=== PATIENT | female | born 1955 | race Caucasian/White ===

== ENCOUNTER 2024-04-27 10:19 | Day surgery (SDC) | payer OTHER, SELFPAY ==
[2024-04-18 06:06] VITALS: BMI 27.4
[2024-04-18 06:37] LABS: % Basophils 1.1 % (0-2); % Immature Granulocytes 0.5 % (0-0.5); % Lymphocytes 32.3 % (20.5-51.1); % Neutrophils 53.1 % (42.2-75.2); Absolute Basophils 0.1 10^3/uL (0-0.2); Absolute Eosinophils 0.1 10^3/uL (0-0.7); Absolute Lymphocytes 1.4 10^3/uL (1.2-3.4); Absolute Monocytes 0.4 10^3/uL (0.1-0.6); Absolute Neutrophils 2.3 10^3/uL (1.4-6.5); Hematocrit 39.8 % (37.0-47.0); Hemoglobin 13.5 g/dL (12.0-16.0); Mean Corp Hgb Conc. 33.9 g/dL (33.0-37.0); Mean Corpuscular Hgb 32.2 pg (27.0-31.0); Mean Platelet Volume 9.9 fL (7.4-10.4); Nucleated Red Blood Cells % 0 %; Platelet Count 240 10^3/uL (130-400); Red Blood Cell Count 4.19 10^6/uL (4.20-5.40); Red Cell Dist. Width 12.9 % (11.5-14.5); White Blood Cell Count 4.4 10^3/uL (4.8-10.8)
[2024-04-27] VITALS (13 sets, daily range): BP systolic 160–204; BP diastolic 65–120; BMI 27.6
--- NOTE | 2024-04-27 13:12 | ITS.CL.ANGIO ---
[employer] - Angioplasty
Angioplasty
Procedure Report:
CARDIAC CATHETERIZATION REPORT
Date of Procedure: 04/27/2024
Referring: Oj Zurita M.D.
INDICATION: Accelerating angina, persistent on 2 antianginal medications.
PROCEDURE:
1. Left heart catheterization
2. Coronary angiography.
3. IVUS guided PCI of the proximal/mid LAD.
ACCESS:
6 Cuban right radial artery.
CATHETERS:
1. 5 Cuban JR4.
2. 5 Cuban JL 3.5.
3. 6 Cuban EBU 3.5 guiding catheter.
HEMODYNAMIC DATA
Weight (kg): 70.3
AO (s/d/x, mmHg): 177/80/121
LV (s/x mmHg): 178/18
LEFT VENTRICULOGRAPHY: Not performed.
CORONARY ANGIOGRAPHY
Dominance: Right.
Left Main: Normal size, bifurcating vessel. There is no coronary artery disease.
LAD: Large size vessel giving large to 2 diagonals. This first diagonal is a substantial vessel supplying much of the anterolateral wall. The second diagonal is a relatively small vessel. There is an 80% lesion in the proximal LAD. The plaque
involving the 80% lesion extends into the mid LAD, spanning the origin of the first diagonal and nearly back to the ostium of the LAD.
Ramus: Congenitally absent.
Circumflex: Normal size, nondominant vessel giving rise to 2 obtuse marginals. The first obtuse marginal is a large vessel which gives off several daughter branches. There are minor luminal irregularities. The second obtuse marginal is a 1.5 mm
vessel supplying the base of the inferior lateral wall.
RCA: Normal size, dominant vessel. There are minor luminal irregularities.
INTERVENTION(S)
1. Successful IVUS guided PCI of the 80% proximal LAD lesion extending into the mid LAD (Xience Skypoint 3.0 x 38 DAVID, postdilated with a 3.5 NC balloon) with reduction in stenosis to 0%, maintaining AXEL-3 flow.
Narrative:
The decision was made to proceed with percutaneous coronary intervention. The diagnostic catheter was removed over a wire and a 6Fr EBU 3.5 guiding catheter was advanced to the aortic root and seated in the left main coronary artery. Additional
heparin was given and a Power Turn Flex wire was advanced into the distal LAD. A BMW wire was advanced into the diagonal for protection. The 80% proximal LAD lesion was predilated with a 2.0 x 12 semi-compliant balloon to 12 dru.
The decision was made to perform intracoronary imaging. An IVUS catheter was advanced through the guiding catheter and into the ostium of the artery. Ring down was performed once the imaging crystal was no longer inside of the guiding catheter. The
IVUS catheter was advanced into the mid LAD, beyond the lesion in question. Intravascular ultrasound was performed in a retrograde fashion using a slow pullback. Intracoronary imaging demonstrated significant atherosclerotic burden, more significant
than angiographically apparent throughout the mid LAD and extending back into the proximal LAD, nearly to the ostium of the LAD.
The IVUS catheter was removed and a Xience Skypoint 3.0 x 38 drug-eluting stent was advanced. The stent was deployed at 12 atmospheres. The stent balloon was removed. A 3.0 x 20 noncompliant balloon was advanced into the stent and the stent was
postdilated to 18 atmospheres. In spite of this aggressive post dilation, a small residual stenosis remained at the distal aspect of the stent and an area of particularly dense calcification.
The 3.0 x 20 noncompliant balloon was removed and a 3.5 x 15 noncompliant balloon was advanced. The proximal margin of the stent was postdilated to 15 dru. The 3.5 x 15 noncompliant balloon was removed and a 3.25 x 12 noncompliant balloon was
advanced. The balloon was advanced into the underexpanded section of the stent in the distal aspect. The balloon was dilated aggressively. At 18 dru, the calcified lesion yielded and the balloon was able to fully expand. The balloon was deflated
and then the mid stent was postdilated to 15 dru. The noncompliant balloon was withdrawn.
IVUS was repeated showing good stent apposition throughout the entire vessel with some residual underexpansion in the calcified margin. The IVUS catheter was removed and the 3.5 x 15 noncompliant balloon was readvanced to the distal aspect of the
stent. The distal stent was postdilated to 15 dru. The mid stent was also dilated to 15 dru. The noncompliant balloon was withdrawn. The power turn flex wire was pulled back into the stented segment and directed into the first diagonal. The BMW
wire was withdrawn from behind the stent then redirected into the LAD, demonstrating that both vessels were percutaneously accessible.
Angiography was performed in orthogonal views, confirming good stent expansion and an excellent angiographic result. The coronary wire was withdrawn and the guide was disengaged from the artery. The catheter was removed over a standard J-wire.
Closure Device: Vascular band.
Radiation (mGy): 512.76
DAP (cm2.Gy): 28.4791
Fluoroscopy time (minutes): 12.7
Sedation time (minutes): 63
CONCLUSIONS
1. Right dominant circulation with luminal irregularities in the circumflex and RCA and dense, calcified plaque in the proximal/mid LAD, spanning the origin of the first diagonal and culminating in an 80% lesion in the proximal LAD, status post
successful IVUS guided PCI (Xience Skypoint 3.0 x 38 DAVID, postdilated with a 3.5 NC balloon) with reduction in stenosis to 0%, maintaining AXEL-3 flow.
2. Mildly elevated filling pressures (LVEDP = 18 mmHg at 70.3 kg).
RECOMMENDATIONS:
1. Expectant management after cardiac catheterization via right radial approach.
2. Limited weight bearing on the right wrist for one week.
3. Dual antiplatelet therapy with aspirin and clopidogrel for at least 12 months, followed by aspirin indefinitely.
4. Guideline directed medical therapy as hemodynamics tolerate.
5. Aggressive secondary prevention with high-dose, high potency statin.
6. Aggressive lifestyle modification.
7. Referral to cardiac rehab.
Copy to: Oj Zurita M.D., Samantha Bruno PA-C
Gigi Tucker DO, FACC, FACP
[2024-04-27] MEDS: ALTACE 10 MG PO (13:19)
[2024-04-27] MEDS: NSS 1000 IV (13:20)
[2024-04-27 13:32] LABS: ACT-LR - POC > 397 Seconds (116-155)
--- NOTE | 2024-04-27 16:14 | W.PN.UPDATE ---
Update Note
Progress Note Update
69 yo WF s/p PCI LAD x1 DAVID (same day). She denies cp, sob, oralia diet, voiding, amb w/o dizziness, EKG SR no ST elevation, R rad site c/d/i. She will be on DAPT ASA/Plavix. We will increase her atorvastatin to 80mg daily. Nitro sl will be provided.
Cardiac rehab c/s. Activity restrictions reviewed. She will continue to monitor her bp at home as her ramipril was increase to 10 bid and toprol started. She will bring a log to her f/u apt as she may need titration or addition of medication. She is
for d/c home after 6pm.
CONCLUSIONS
1. Right dominant circulation with luminal irregularities in the circumflex and RCA and dense, calcified plaque in the proximal/mid LAD, spanning the origin of the first diagonal and culminating in an 80% lesion in the proximal LAD, status post
successful IVUS guided PCI (Xience Skypoint 3.0 x 38 DAVID, postdilated with a 3.5 NC balloon) with reduction in stenosis to 0%, maintaining AXEL-3 flow.
2. Mildly elevated filling pressures (LVEDP = 18 mmHg at 70.3 kg).
RECOMMENDATIONS:
1. Expectant management after cardiac catheterization via right radial approach.
2. Limited weight bearing on the right wrist for one week.
3. Dual antiplatelet therapy with aspirin and clopidogrel for at least 12 months, followed by aspirin indefinitely.
4. Guideline directed medical therapy as hemodynamics tolerate.
5. Aggressive secondary prevention with high-dose, high potency statin.
6. Aggressive lifestyle modification.
7. Referral to cardiac rehab.
Copy to: Oj Zurita M.D., Samantha Bruno PA-C
== END 2024-04-27 17:32 | disposition home or self-care (01) ==
LOC: CATH 10:19
PROVIDERS: ATTENDING PHYSICIAN Internal Medicine Cardiovascular Disease; FAMILY PHYSICIAN Physician Assistant Medical; OTHER PHYSICIAN Internal Medicine
DX: I25.110 Atherosclerotic heart disease of native coronary artery with unstable angina pectoris (principal); I44.7 Left bundle-branch block, unspecified; I10 Essential (primary) hypertension; E78.2 Mixed hyperlipidemia; E10.9 Type 1 diabetes mellitus without complications; Z96.41 Presence of insulin pump (external) (internal); Z82.49 Family history of ischemic heart disease and other diseases of the circulatory system; Z79.82 Long term (current) use of aspirin; Z79.02 Long term (current) use of antithrombotics/antiplatelets
CPT/HCPCS: 92978; 36415; 85025; 85347; 93005; 93458; C1725; C1753; C1769; C1874; C1894; C9600; Q9967

== ENCOUNTER 2024-05-25 13:00 | Outpatient (RCR) | payer OTHER, SELFPAY | END 2024-05-25 23:59 | disposition home or self-care (01) | LOC: CRHB 13:00 | PROVIDERS: ATTENDING PHYSICIAN Internal Medicine | DX: I25.10 Atherosclerotic heart disease of native coronary artery without angina pectoris (principal); Z95.5 Presence of coronary angioplasty implant and graft | CPT/HCPCS: G0422 ==

== ENCOUNTER 2024-05-29 18:06 | Outpatient (RCR) | payer OTHER, SELFPAY ==
[2024-05-25 14:35] LABS: Glucose - Point of Care 121 mg/dl (70-99)
[2024-05-25 15:33] LABS: Glucose - Point of Care 195 mg/dl (70-99)
[2024-06-07 09:44] LABS: HDL Cholesterol 55 mg/dl; LDL Cholesterol, Calculated 38 mg/dl; Total Cholesterol 104 mg/dl (50-199); Triglyceride 56 mg/dl (10-149); Very Low Density Lipoprotein 11 mg/dl (0-30)
== END 2024-05-29 18:12 | disposition home or self-care (01) ==
LOC: CRHB 18:06
PROVIDERS: ATTENDING PHYSICIAN Internal Medicine
DX: I25.10 Atherosclerotic heart disease of native coronary artery without angina pectoris (principal); Z95.5 Presence of coronary angioplasty implant and graft
CPT/HCPCS: 36415; 80061; 82962

== ENCOUNTER 2024-06-27 09:02 | Outpatient (RCR) | payer OTHER, SELFPAY ==
[2024-05-30 08:37] LABS: Glucose - Point of Care 204 mg/dl (70-99)
[2024-05-30 09:32] LABS: Glucose - Point of Care 112 mg/dl (70-99)
[2024-06-06 08:35] LABS: Glucose - Point of Care 137 mg/dl (70-99)
[2024-06-06 09:29] LABS: Glucose - Point of Care 113 mg/dl (70-99)
[2024-06-07 09:26] LABS: Glucose - Point of Care 220 mg/dl (70-99)
[2024-06-08 08:35] LABS: Glucose - Point of Care 258 mg/dl (70-99)
[2024-06-08 09:34] LABS: Glucose - Point of Care 111 mg/dl (70-99)
[2024-06-13 08:31] LABS: Glucose - Point of Care 210 mg/dl (70-99)
[2024-06-13 09:31] LABS: Glucose - Point of Care 97 mg/dl (70-99)
[2024-06-27 08:38] LABS: Glucose - Point of Care 225 mg/dl (70-99)
[2024-06-27 09:36] LABS: Glucose - Point of Care 140 mg/dl (70-99)
== END 2024-06-27 23:59 | disposition home or self-care (01) ==
LOC: CRHB 09:02
PROVIDERS: ATTENDING PHYSICIAN Internal Medicine
DX: I25.10 Atherosclerotic heart disease of native coronary artery without angina pectoris (principal); Z95.5 Presence of coronary angioplasty implant and graft
CPT/HCPCS: 82962; G0422; G0423

== ENCOUNTER → 2024-07-12 08:08 | Outpatient (REF) | payer OTHER, SELFPAY | LOC: HWRCS 08:08 | PROVIDERS: ATTENDING PHYSICIAN Internal Medicine; FAMILY PHYSICIAN Physician Assistant Medical | DX: I25.10 Atherosclerotic heart disease of native coronary artery without angina pectoris (principal) | CPT/HCPCS: 93306 ==

== ENCOUNTER 2024-07-27 08:39 | Outpatient (RCR) | payer OTHER, SELFPAY ==
[2024-06-29 08:36] LABS: Glucose - Point of Care 163 mg/dl (70-99)
[2024-06-29 09:34] LABS: Glucose - Point of Care 166 mg/dl (70-99)
[2024-07-06 08:33] LABS: Glucose - Point of Care 179 mg/dl (70-99)
[2024-07-06 09:31] LABS: Glucose - Point of Care 88 mg/dl (70-99)
[2024-07-06 09:47] LABS: Glucose - Point of Care 148 mg/dl (70-99)
[2024-07-11 08:30] LABS: Glucose - Point of Care 148 mg/dl (70-99)
[2024-07-11 09:29] LABS: Glucose - Point of Care 123 mg/dl (70-99)
[2024-07-13 08:38] LABS: Glucose - Point of Care 179 mg/dl (70-99)
[2024-07-13 09:39] LABS: Glucose - Point of Care 168 mg/dl (70-99)
[2024-07-18 08:34] LABS: Glucose - Point of Care 281 mg/dl (70-99)
[2024-07-18 09:36] LABS: Glucose - Point of Care 156 mg/dl (70-99)
[2024-07-25 08:37] LABS: Glucose - Point of Care 242 mg/dl (70-99)
[2024-07-25 09:34] LABS: Glucose - Point of Care 120 mg/dl (70-99)
[2024-07-27 08:28] LABS: Glucose - Point of Care 238 mg/dl (70-99)
[2024-07-27 09:26] LABS: Glucose - Point of Care 204 mg/dl (70-99)
== END 2024-07-27 23:59 | disposition home or self-care (01) ==
LOC: CRHB 08:39
PROVIDERS: ATTENDING PHYSICIAN Internal Medicine
DX: I25.10 Atherosclerotic heart disease of native coronary artery without angina pectoris (principal); Z95.5 Presence of coronary angioplasty implant and graft
CPT/HCPCS: 82962; G0422; G0423

== ENCOUNTER 2024-08-24 09:39 | Outpatient (RCR) | payer OTHER, SELFPAY ==
[2024-08-03 08:33] LABS: Glucose - Point of Care 107 mg/dl (70-99)
[2024-08-03 09:30] LABS: Glucose - Point of Care 174 mg/dl (70-99)
[2024-08-10 08:37] LABS: Glucose - Point of Care 309 mg/dl (70-99)
[2024-08-10 09:02] LABS: Glucose - Point of Care 325 mg/dl (70-99)
[2024-08-15 08:34] LABS: Glucose - Point of Care 126 mg/dl (70-99)
[2024-08-15 09:32] LABS: Glucose - Point of Care 147 mg/dl (70-99)
[2024-08-17 08:28] LABS: Glucose - Point of Care 178 mg/dl (70-99)
[2024-08-17 09:29] LABS: Glucose - Point of Care 139 mg/dl (70-99)
[2024-08-22 08:31] LABS: Glucose - Point of Care 151 mg/dl (70-99)
[2024-08-22 09:32] LABS: Glucose - Point of Care 175 mg/dl (70-99)
[2024-08-24 08:34] LABS: Glucose - Point of Care 175 mg/dl (70-99)
[2024-08-24 09:31] LABS: Glucose - Point of Care 92 mg/dl (70-99)
[2024-08-24 09:43] LABS: Glucose - Point of Care 122 mg/dl (70-99)
== END 2024-08-24 23:59 | disposition home or self-care (01) ==
LOC: CRHB 09:39
PROVIDERS: ATTENDING PHYSICIAN Internal Medicine
DX: I25.10 Atherosclerotic heart disease of native coronary artery without angina pectoris (principal); Z95.5 Presence of coronary angioplasty implant and graft; I25.2 Old myocardial infarction
CPT/HCPCS: 82962; G0422; G0423

== ENCOUNTER → 2024-09-04 07:54 | Outpatient (REF) | payer OTHER, SELFPAY | LOC: HWWDC 07:54 | PROVIDERS: ATTENDING PHYSICIAN Physician Assistant Medical | DX: Z12.31 Encounter for screening mammogram for malignant neoplasm of breast (principal) | CPT/HCPCS: 77063; 77067 ==

== ENCOUNTER 2024-09-26 09:36 | Outpatient (RCR) | payer OTHER, SELFPAY ==
[2024-08-29 09:35] LABS: Glucose - Point of Care 97 mg/dl (70-99)
[2024-08-31 08:33] LABS: Glucose - Point of Care 233 mg/dl (70-99)
[2024-08-31 09:29] LABS: Glucose - Point of Care 146 mg/dl (70-99)
[2024-09-05 08:37] LABS: Glucose - Point of Care 174 mg/dl (70-99)
[2024-09-05 09:28] LABS: Glucose - Point of Care 154 mg/dl (70-99)
[2024-09-07 08:34] LABS: Glucose - Point of Care 188 mg/dl (70-99)
[2024-09-07 09:30] LABS: Glucose - Point of Care 137 mg/dl (70-99)
[2024-09-12 08:33] LABS: Glucose - Point of Care 175 mg/dl (70-99)
[2024-09-12 09:27] LABS: Glucose - Point of Care 148 mg/dl (70-99)
[2024-09-14 08:33] LABS: Glucose - Point of Care 178 mg/dl (70-99)
[2024-09-14 09:32] LABS: Glucose - Point of Care 198 mg/dl (70-99)
[2024-09-19 08:27] LABS: Glucose - Point of Care 136 mg/dl (70-99)
[2024-09-19 09:28] LABS: Glucose - Point of Care 98 mg/dl (70-99)
[2024-09-19 09:37] LABS: Glucose - Point of Care 121 mg/dl (70-99)
[2024-09-21 08:32] LABS: Glucose - Point of Care 179 mg/dl (70-99)
[2024-09-21 09:32] LABS: Glucose - Point of Care 111 mg/dl (70-99)
[2024-09-26 08:34] LABS: Glucose - Point of Care 173 mg/dl (70-99)
[2024-09-26 09:30] LABS: Glucose - Point of Care 122 mg/dl (70-99)
== END 2024-09-26 23:59 | disposition home or self-care (01) ==
LOC: CRHB 09:36
PROVIDERS: ATTENDING PHYSICIAN Internal Medicine
DX: I25.10 Atherosclerotic heart disease of native coronary artery without angina pectoris (principal); Z95.5 Presence of coronary angioplasty implant and graft
CPT/HCPCS: 82962; 93797; 93798; G0422; G0423

== ENCOUNTER → 2025-05-02 15:51 | Outpatient (REF) | payer OTHER, SELFPAY | LOC: RCS 15:51 | PROVIDERS: ATTENDING PHYSICIAN Internal Medicine; FAMILY PHYSICIAN Physician Assistant Medical | DX: I25.10 Atherosclerotic heart disease of native coronary artery without angina pectoris (principal); I44.7 Left bundle-branch block, unspecified | CPT/HCPCS: 93306 ==

== ENCOUNTER 2025-05-09 06:18 | Day surgery (SDC) | payer OTHER, SELFPAY ==
[2025-05-09 07:17] LABS: Glucose - Point of Care 303 mg/dl (70-99)
== END 2025-05-09 08:29 | disposition home or self-care (01) ==
LOC: GI 06:18
PROVIDERS: ATTENDING PHYSICIAN Internal Medicine
DX: Z12.11 Encounter for screening for malignant neoplasm of colon (principal); K57.30 Diverticulosis of large intestine without perforation or abscess without bleeding; Z80.0 Family history of malignant neoplasm of digestive organs
CPT/HCPCS: G0105; 82962

== ENCOUNTER → 2025-09-05 08:15 | Outpatient (REF) | payer OTHER, SELFPAY | LOC: HWWDC 08:15 | PROVIDERS: ATTENDING PHYSICIAN Physician Assistant Medical | DX: Z12.31 Encounter for screening mammogram for malignant neoplasm of breast (principal) | CPT/HCPCS: 77063; 77067 ==

== ENCOUNTER → 2025-09-19 08:14 | Outpatient (REF) | payer OTHER, SELFPAY | LOC: DHVS 08:14 | PROVIDERS: ATTENDING PHYSICIAN Internal Medicine; FAMILY PHYSICIAN Physician Assistant Medical | DX: I25.10 Atherosclerotic heart disease of native coronary artery without angina pectoris (principal); R09.89 Other specified symptoms and signs involving the circulatory and respiratory systems | CPT/HCPCS: 93880 ==

== ENCOUNTER → 2025-11-16 08:41 | Outpatient (REF) | payer OTHER, SELFPAY | LOC: HWRAD 08:41 | PROVIDERS: ATTENDING PHYSICIAN Physician Assistant Medical | DX: Z78.0 Asymptomatic menopausal state (principal) | CPT/HCPCS: 77080 ==